=== PATIENT | male | born 1985 | race Caucasian/White ===

== ENCOUNTER 2018-02-14 16:53 | Emergency (ER) | payer OTHER ==
--- NOTE | 2018-02-14 16:58 | PDOC ---
History of Present Illness <Juliet Chris - Last Filed: 02/14/18 17:08> - General History Source: Patient Exam Limitations: No Limitations - History of Present Illness Initial Comments: 02/14/18 17:12 The patient is a 32 year old male, with a significant past medical history of asthma, who presents to the emergency department for medication refill. As per patient, his albuterol inhaler and nebulizer are both empty. He endorses it varies by day how often he uses it. While in the ED, patient endorses being asymptomatic. He denies any recent fevers, chills, headache or dizziness. He denies any recent nausea, vomit, diarrhea or constipation. He denies any chest pain or shortness of breath. He denies any recent dysuria, frequency, urgency or hematuria. Allergies: NKDA Past surgical history: None reported. <Honey Akers - Last Filed: 02/14/18 17:16> - General Chief Complaint: RX Refill Stated Complaint: REFILL Time Seen by Provider: 02/14/18 16:58 Past History <Juliet Chris - Last Filed: 02/14/18 17:08> <Honey Akers - Last Filed: 02/14/18 17:16> - Past Medical History Allergies/Adverse Reactions: Allergies Allergy/AdvReac Type Severity Reaction Status Date / Time No Known Allergies Allergy Verified 02/14/18 16:53 Home Medications: Ambulatory Orders Albuterol 0.083% Nebulizer Luma [Ventolin 0.083% Nebulizer Soln -] 1 neb NEB Q6H PRN #120 vial 02/14/18 Albuterol Sulfate Inhaler - [Ventolin HFA Inhaler -] 1 - 2 inh PO QID PRN #1 inhaler 02/14/18 Albuterol Sulfate Inhaler - [Ventolin Hfa Inhaler -] 1 inh PO PRN PRN 02/14/18 Review of Systems - Review of Systems Able to Perform ROS?: Yes Comments:: 02/14/18 17:12 GENERAL/CONSTITUTIONAL: No fever or chills. No weakness. HEAD, EYES, EARS, NOSE AND THROAT: No change in vision. No ear pain or discharge. No sore throat. CARDIOVASCULAR: No chest pain or shortness of breath. RESPIRATORY: No cough, wheezing, or hemoptysis. GASTROINTESTINAL: No nausea, vomiting, diarrhea or constipation. GENITOURINARY: No dysuria, frequency, or change in urination. MUSCULOSKELETAL: No joint or muscle swelling or pain. No neck or back pain. SKIN: No rash NEUROLOGIC: No headache, vertigo, loss of consciousness, or change in strength/ sensation. ENDOCRINE: No increased thirst. No abnormal weight change. HEMATOLOGIC/LYMPHATIC: No anemia, easy bleeding, or history of blood clots. ALLERGIC/IMMUNOLOGIC: No hives or skin allergy. All Other Systems: Reviewed and Negative <Honey Akers - Last Filed: 02/14/18 17:16> *Physical Exam - Vital Signs Last Vital Signs Temp Pulse Resp BP Pulse Ox 98.2 F 85 20 133/89 98 02/14/18 16:53 02/14/18 16:53 02/14/18 16:53 02/14/18 16:53 02/14/18 16:53 - Physical Exam Comments: 02/14/18 17:13 GENERAL: Awake, alert, and fully oriented, in no acute distress HEAD: No signs of trauma EYES: PERRLA, EOMI, sclera anicteric, conjunctiva clear ENT: Auricles normal inspection, hearing grossly normal, nares patent, oropharynx clear without exudates. Moist mucosa NECK: Normal ROM, supple, no lymphadenopathy, JVD, or masses LUNGS: Breath sounds equal, clear to auscultation bilaterally. No wheezes, and no crackles HEART: Regular rate and rhythm, normal S1 and S2, no murmurs, rubs or gallops ABDOMEN: Soft, nontender, normoactive bowel sounds. No guarding, no rebound. No masses EXTREMITIES: Normal range of motion, no edema. No clubbing or cyanosis. No cords, erythema, or tenderness NEUROLOGICAL: Cranial nerves II through XII grossly intact. Normal speech, normal gait SKIN: Warm, Dry, normal turgor, no rashes or lesions noted. <Honey Akers - Last Filed: 02/14/18 17:16> Moderate Sedation - Procedure Monitoring Vital Signs: Procedure Monitoring Vital Signs Temperature 98.2 F 02/14/18 16:53 Pulse Rate 85 02/14/18 16:53 Respiratory Rate 20 02/14/18 16:53 Blood Pressure 133/89 02/14/18 16:53 O2 Sat by Pulse Oximetry (%) 98 02/14/18 16:53 <Honey Akers - Last Filed: 02/14/18 17:16> *DC/Admit/Observation/Transfer - Discharge Dispostion Decision to Admit order: No <Juliet Chris - Last Filed: 02/14/18 17:08> - Attestations Scribe Attestion: 02/14/18 17:13 Documentation prepared by Honey Akers, acting as medical director for Juliet Chris MD. <Honey Akers - Last Filed: 02/14/18 17:16> Diagnosis at time of Disposition: Medication refill - Discharge Dispostion Disposition: HOME Condition at time of disposition: Stable - Prescriptions Prescriptions: Albuterol 0.083% Nebulizer Luma [Ventolin 0.083% Nebulizer Soln -] 1 neb NEB Q6H PRN #120 vial PRN Reason: Short Of Breath/Wheezing Albuterol Sulfate Inhaler - [Ventolin HFA Inhaler -] 1 - 2 inh PO QID PRN #1 inhaler PRN Reason: Short Of Breath/Wheezing - Patient Instructions Printed Discharge Instructions: DI for Asthma -- Adult
[2018-02-14 17:03] VITALS: BP 133/89; PULSE 85; TEMP 98.2; BMI 24.4
== END 2018-02-14 17:15 | disposition home or self-care (01) ==
LOC: FER 16:53
DX: Z76.0 Encounter for issue of repeat prescription (principal)
CPT/HCPCS: 99281-25